=== PATIENT | female | born 1985 | race Caucasian/White ===

== ENCOUNTER 2016-03-31 17:38 | Inpatient (IN) | payer MEDICAID ==
[~2016-03-31] VITALS: Ht 160 cm; Wt 120.7 kg
[2016-03-31 17:51] VITALS: Ht 160 cm; Wt 120.7 kg
[2016-03-31] MEDS ORDERED: PRENAT PO (17:53)
[2016-03-31] MEDS: LACTATED RINGER'S 1,000 ML IV SCH ×3 (18:17→20:04)
[2016-03-31] MEDS ORDERED: CARBOPROST 250 MCG INJ IM PRN (18:30)
[2016-03-31] MEDS ORDERED: CEFAZOLIN 2 GM/50 ML (PMX) 50 ML IV SCH (18:30)
[2016-03-31] MEDS ORDERED: MISOPROSTOL 200 MCG TAB PR PRN ×2 (18:30→20:30)
[2016-03-31] MEDS ORDERED: METHYLERGONOVINE 0.2 MG INJ IM PRN (18:30)
[2016-03-31 19:00] LABS: BASOPHILS % 0.4 % (0.0-2.0); EOSINOPHILS % 0.5 % (0.0-7.0); HEMATOCRIT 29.8 % (37.0-47.0); HEMOGLOBIN 9.8 g/dl (12.0-16.0); LYMPHOCYTES # 1.7 10^3/ul (0.8-2.9); LYMPHOCYTES % 29.9 % (15.0-51.0); MEAN CORPUSCULAR HEMOGLOBIN 25.6 pg (29.0-33.0); MEAN CORPUSCULAR VOLUME 77.4 fl (82.0-101.0); MEAN PLATELET VOLUME 8.4 fl (7.4-10.4); MONOCYTE # 0.3 10^3/ul (0.3-0.9); MONOCYTES % 5.6 % (0.0-11.0); NEUTROPHIL # 3.6 10^3/ul (1.6-7.5); NEUTROPHILS % 63.6 % (39.0-77.0); PLATELET COUNT 236 10^3/UL (140-440); RED BLOOD COUNT 3.85 10^6/ul (4.20-5.40); RED CELL DISTRIBUTION WIDTH 14.9 % (11.5-14.5); UNCORRECTED WBC 5.6 10^3/ul (4.8-10.8); WHITE BLOOD COUNT 5.6 10^3/ul (4.8-10.8)
[2016-03-31 19:01] LABS: CONDITION 1; LH ANALYZER COMMENTS 1
[2016-03-31 19:12] LABS: INR 0.91; PROTIME 12.2 Sec (12.2-14.2)
[2016-03-31 19:13] LABS: PARTIAL THROMBOPLASTIN TIME 27.4 Sec (25.0-35.0)
[2016-03-31] MEDS ORDERED: CITRIC ACID/NA CITRATE 30 ML CUP ONE (19:37)
[2016-03-31] MEDS ORDERED: KETOROLAC 30 MG INJ ONE (19:55)
[2016-03-31] MEDS ORDERED: ONDANSETRON 4 MG INJ ONE (19:55)
[2016-03-31] MEDS ORDERED: METOCLOPRAMIDE 10 MG INJ ONE (19:55)
[2016-03-31] MEDS ORDERED: morphine SULFATE/PF (10 MG/10 ML) INJ ONE (19:55)
[2016-03-31] MEDS ORDERED: CITRIC ACID/NA CITRATE 30 ML CUP PO ONE (20:00)
--- NOTE | 2016-03-31 20:04 | HP ---
Date/Time of Note Date/Time of Note DATE: 03/31/16 TIME: 20:01 OB - History Hx of Present Free Text/Dictation 30 YO with IUP at 38 weeks and h/o c/s x 4 reports to L&D in labor with painful UCs. she desires repeat c/s and BTL Care: Good Care Ultrasounds: Normal mid trimester US Obstetrical Complications: Other (Anemia) Medical Complications: None Other Concerns: h/o c/s x 4 and obese Past Family/Social History * Past Medical, Surgical, Family and Obstetric Histories reviewed from chart. OB Admission Exam Physical Exam HEENT: WNL Heart: Rhythm Normal Lungs: Clear, Equal Abdomen: WNL Extremities: Normal Reflexes: Normal Cervical Dilatation: 1cm Effacement: 100% (90) Last 72 hours Lab Results CBC & BMP 03/31/16 17:45 OB Assessment/Plan Other Assessment: 30 YO with IUP at 38 weeks and h/o c/s x 4 reports to L&D in labor with painful UCs. she desires repeat c/s and BTL Other plan: repeat c/s and BTL TOY GOINS MD Mar 31, 2016 20:04
[2016-03-31] MEDS ORDERED: LANOLIN 7 GM TUBE TOP PRN (20:30)
[2016-03-31] MEDS ORDERED: OXYCODONE/ACETAMINOPHEN (5/325) TAB PO PRN ×2 (20:30)
[2016-03-31] MEDS ORDERED: NA PHOSPHATE/BIPHOS 133 ML ENEMA PR PRN (20:30)
[2016-03-31] MEDS ORDERED: PHENYLephrine (100 MCG/ML) 5ML SYG ONE (20:35)
--- NOTE | 2016-03-31 20:44 | PREOPHP ---
DATE OF ADMISSION: 03/31/2016 HISTORY OF PRESENT ILLNESS: The patient is a 30-year-old female, 6, para 4, at 38 weeks, reports to Labor and delivery complaining of painful uterine contractions. She is 1 cm and 100% effaced. She looks very uncomfortable and she is having contractions. She desires to have rep eat delivery and tubal ligation. She has a history of delivery x4 in the past. I discussed with patient the risks, benefits, indications, alternatives of procedure including, but n ot limited to risk of infection, bleeding, damage to other organs, bowel, bladder, hernia formation, scar formation, possible transfusions, and the possibility that tubal ligation fails and she may ravi ve pregnancies in the future discussed with the patient. She was allowed to ask questions, all her questions were answered, and informed consent has been obtained. PAST MEDICAL HISTORY: Obesity, anemia. PAST SURGICAL HISTORY: delivery x4 and back surgery. ALLERGIES: NO KNOWN DRUG ALLERGIES. MEDICATIONS: 1. vitamins. 2. Iron. REVIEW OF SYSTEMS: Significant as above. PHYSICAL EXAMINATION: VITAL SIGNS: Stable. Afebrile. GENERAL: In no acute distress. HEENT: No thyromegaly. HEART: Regular rate and rhythm. LUNGS: Clear to auscultation bilaterally. ABDOMEN: Soft, obese, gravid, not tender. EXTREMITIES: No edema. ASSESSMENT: 1. Term . 2. History of previous delivery. 3. Desires tubal ligation. 4. Obesity. PLAN: Repeat delivery and tubal ligation. Informed consent obtained. Dictated By: TOY MELENDREZ/PERCY Conf#: [id number] DID#: [id number]
[2016-03-31] MEDS ORDERED: FENTAnyl 50 MCG/ML VIAL ONE (20:45)
[2016-03-31] MEDS ORDERED: MEPERIDINE 100 MG INJ ONE (20:55)
[2016-03-31] MEDS: SENNA/DOCUSATE NA (8.6MG/50MG) TAB PO SCH (21:00)
[2016-03-31] MEDS ORDERED: LIDOCAINE 2% (SDV) 5 ML INJ ONE (21:05)
[2016-03-31] MEDS ORDERED: CEFAZOLIN 1 GM INJ ONE (21:06)
[2016-03-31] MEDS ORDERED: METOCLOPRAMIDE 10 MG INJ IV PRN (21:30)
[2016-03-31] MEDS ORDERED: ONDANSETRON 4 MG INJ IV PRN ×2 (21:30→22:00)
[2016-03-31] MEDS ORDERED: HYDROmorphONE (0.2 MG/ML) 10ML SYG IV PRN ×3 (21:30)
[2016-03-31] MEDS ORDERED: MEPERIDINE 25 MG INJ IV PRN (21:30)
[2016-03-31] MEDS ORDERED: DIPHENHYDRAMINE 50 MG INJ IV PRN ×2 (21:30→22:00)
[2016-03-31] MEDS ORDERED: NALOXONE (0.4 MG/ML) INJ IV PRN (22:00)
[2016-03-31] MEDS ORDERED: HYDROmorphONE 1 MG/ML SYG IV PRN ×3 (22:00)
--- NOTE | 2016-03-31 22:49 | OPRPT ---
Intraop Record Datetime Report Generated by CPN: 03/31/2016 22:49 Datetime: 03/31/2016 22:32 Sequential Compression Device: N/A Datetime: 03/31/2016 22:17 Sequential Compression Device: N/A Datetime: 03/31/2016 22:04 OR Number: 2 TIMES/PROCEDURE Arrive OR: 03/31/2016 19:57 Depart OR: 03/31/2016 21:45 Anesthesia Start: 03/31/2016 19:47 Anesthesia End: 03/31/2016 21:56 Surgery Start: 03/31/2016 20:51 Surgery End: 03/31/2016 21:29 Preoperative Dx: 38WKS REPEAT SCTION WITH LABOR Surgical Procedure: Section with BTL Surgical Procedure Other: N/A Postoperative Dx: 38WKS REPEAT SECTION C/S Decision Time: 03/31/2016 18:30 C/S Decision to Incision (min): 141 Uterine Incision: 03/31/2016 20:51 PERSONNEL Surgeon: Maynor Dye Scrub: ADELSO Anesthesia Care Provider: Stacey Lou Care: See Delivery Summary for Infant Care Providers Others in OR: EFRAIN RN; TACHO, RT; FOB Anesthesia Type: Epidural ASA Level: III RISK FOR INJURY Mode of Arrival: Ambulate Procedure Time Out: Correct Patient Identity; Accurate Procedure Consent Form; Agreement on Procedu re to be Done; Correct Patient Position; Addressed Need to Administer Antibiotics or Fluids for Irri gation Preoperative Information: Preoperative Checklist Reviewed; Allergies Reviewed; NPO Status Verified RISK FOR ANXIETY/KNOW DEFICIT Emotional Status: Calm/Relaxed Interventions: Provided Education Based on Age and Identified Needs; Communicated Patient Concerns to Appropriate Members of the Health Care Team; Explained Sequence of Events and Perioperative Routi ne; Evaluated Response to Instructions RISK FOR PAIN Pain Teaching: Instructed on Pain Scale Pain Scale: 2.0 Pain Location: ABDOMEN PREOPERATIVE OUTCOMES Preoperative Outcomes: Verbalizes/Indicates Decreased Anxiety, Ability to [place], Understanding of Pr ocedure and Sequence of Events. Questions Answered; Demonstrates Adequate Pain Management; Verbaliz es Comfort Related to Transfer/Transport RISK FOR INFECTION Skin Pre-Operative Site: Intact Clip: Clip Clip Location: CLOSED LEG ABDOMEN Prep: Yes Prep By: DR DYE Prep Solution: Povidone Iodine Catheter: Lundberg Catheter Size: 16 Catheter Inserted By: YANETH GARDINER Surgical Wound Class: I-Clean Dressing Type: Secured Gauze Risk for Impaired Skin Integrity Position in OR: Supine Bony Prominences Protection: Arms Tucked/Padded Positioning Devices: Leg Carias Risk for Hypothermia Warming Interventions: Warm Sebastian(s); Warm IV Fluid Warming Unit Temp Settin.0 Warming Device Number: #[id number] Warming Sebastian Applied by: YANTEH GARDINER Risk for Injury Safety Straps Applied: Legs Sequential Compression Device: Yes Electrosurgical Unit: Yes Electrosurgical Unit Number: [place] #[id number] Bipolar Number: [place] [id number] [id number] 04/2017 Ground Pad Location: Right Lateral Thigh Coag Number: 55 Cut Number: 55 Estimated Blood Loss- OR (ml): 700 1st Count Sponge Count: Correct Needle Count: Correct Blade Count: Correct Instrument Count: Correct 2nd Count Sponge Count: Correct Needle Count: Correct Blade Count: Correct Instrument Count: Correct 3rd Count Sponge Count: Correct Needle Count: Correct Blade Count: Correct Instrument Count: Correct Final Count Sponge Count 4: Correct Needle Count 4: Correct Blade Count 4: Correct Instrument Count 4: Correct Surgeon Acknowledged Count: Yes Final Count Resolution: Count Correct Intraoperative Data Equipment: Non-Invasive Blood Pressure; Pulse Oximeter; EKG Blood Products Given: No Implants/Prosthesis Implants/Prosthesis: N/A Grafts: N/A Irrigation Irrigants: NACL; Sterile H2O Irrigation Amount: EACH 1L Specimens Specimens: Yes Specimen Type: Fallopian Tubes Disposition: PATHO Cultures Cultures: N/A X-Ray X-Ray Taken: No Postoperative Skin: Warm Pain Scale: 0 Condition: Awake; Alert Temperature: 97.7 Operative Outcomes: Patient's Surgery Performed Using Aseptic Technique and in a Manner to Prevent Cross-Contamination; Skin Remains Smooth, Intact, Non-reddened, Non-irritated, Free of Bruising; Cor e Body Temperature Remains in Expected Range Transfer To: L_D Datetime: 03/31/2016 22:02 Sequential Compression Device: N/A Datetime: 03/31/2016 21:47 Sequential Compression Device: N/A Datetime: 03/31/2016 17:47 Food Allergies/Reactions: DENIES Latex Allergies/Reactions: No Latex Allergies Datetime: 03/31/2016 17:41 Drug Allergies/Reactions: No Known Drug Allergies (02/19/2013)
--- NOTE | 2016-03-31 22:49 | DELSUM ---
Delivery Summary A-C Datetime Report Generated by CPN: 03/31/2016 22:49 DELIVERY PERSONNEL Lubrication Equipment Servicer: Irvin, Dianna MATERNAL INFORMATION Delivery Anesthesia: Epidural Medications in Delivery: SEE ANES RECORD Estimated Blood Loss (ml): 700 Placenta Cultured: No Maternal Complications: None RN Comments: RC/S WITH LABOR LABOR SUMMARY EDC: 04/14/2016 00:00 No. Babies in Womb: 1 Attempted: No Labor Anesthesia: Epidural LABOR INFORMATION Reason for Induction: Not Applicable Onset of Labor: 03/31/2016 16:30 Oxytocin: N/A Group B Beta Strep: Negative Antibiotics # of Doses: ANCEF 2GM Antibiotics Time of Last Dose: 202403/31/16 Steroids Given: None Reason Steroids Not Administered: Not Applicable MEMBRANES Membranes Rupture Method: Artificial Rupture of Membranes: 03/31/2016 20:52 Length of Rupture (hr): 0.02 Amniotic Fluid Color: Clear Amniotic Fluid Amount: Moderate Amniotic Fluid Odor: Normal STAGES OF LABOR Stage 3 hr: 0 Stage 3 min: 1 Total Time in Labor hr: 4 Total Time in Labor min: 24 CSECTION DELIVERY Primary Indication: Repeat Other Primary Indication: WITH LABOR Secondary Indication: N/A Other Secondary Indication: N/A CSection Urgency: Emergency CSection Incidence: Repeat Labor: Labor Elective: N/A CSection Incision: Lower Uterine Transverse Sterilization Procedure: Jeremy BABY A INFORMATION Infant Delivery Date/Time: 03/31/2016 20:53 Method of Delivery: Born in Route : No : N/A Forceps: N/A Vacuum Extraction: N/A Shoulder Dystocia : N/A SHOULDER DYSTOCIA BABY A Delivery Date/Time: 03/31/2016 20:53 PRESENTATION/POSITION BABY A Presentation: Cephalic Cephalic Presentation: Vertex Vertex Position: Left Occipital Anterior Breech Presentation: N/A PLACENTA INFORMATION BABY A Placenta Delivery Time : 03/31/2016 20:54 Placenta Method of Delivery: Manual Removal Placenta Status: Delivered SCORES BABY A Heart Rate 1 min: >100 bpm Resp Effort 1 min: Good Cry Reflex Irritability 1 min: Cough/Sneeze/Pulls Away Muscle Tone 1 min: Active Motion Color 1 min: Body [place], Extremit Blue Resuscitation Effort 1 min: Tactile Stimulation SCORE 1 MIN: 9 Heart Rate 5 min: >100 bpm Resp Effort 5 min: Good Cry Reflex Irritability 5 min: Cough/Sneeze/Pulls Away Muscle Tone 5 min: Active Motion Color 5 min: Body [place], Extremit Blue Resuscitation Effort 5 min: N/A SCORE 5 MIN: 9 INFORMATION BABY A Gestational Age at Delivery: 38.0 Gestational Status: Early Term- 37- 38.6 Weeks Outcome : Liveborn Infant Condition : Stable Infant Sex: Female IDENTIFICATION/MEDS BABY A ID Band Number: [id number] ID Band Location: Right Leg; Left Arm Sensor Applied: Yes Sensor Number: [id number] Sensor Location : Cord Clamp Vitamin K Given : Not Given Erythromycin Given: Not Given WEIGHT/LENGTH BABY A Infant Birthweight (gm): 3420 Weight (lb): 7 Weight (oz): 9 Infant Length (in): 19.00 Length (cm): 48.26 CORD INFORMATION BABY A No. Cord Vessels: 3 Nuchal Cord : N/A Cord Blood Taken: Yes Suction: Mouth; Nose ASSESSMENT BABY A Infant Complications: None Physical Findings at Delivery: Within Normal Limits Infant Respirations: Appears Normal [place] Structural Glass/ALS Called : No Care By: EFRAIN/TACHO Transferred To: Remains with Mother
[2016-03-31] MEDS: OXYTOCIN 30 UNITS/LR 500 ML IV PRN (23:06)
[2016-04-01] MEDS ORDERED: IBUPROFEN 600 MG TAB PO SCH
[2016-04-01 00:30] VITALS: BP 129/81; PULSE 80; RESP 20
[2016-04-01 01:45] VITALS: BP 122/63; PULSE 88; RESP 19
[2016-04-01] MEDS: OXYTOCIN 30 UNITS/LR 500 ML IV PRN (02:36)
--- NOTE | 2016-04-01 03:49 | OPR ---
DATE OF OPERATION: 03/31/2016 PREOPERATIVE DIAGNOSES: 1. Labor, at 38 weeks, desires repeat delivery, and desires tubal ligation. 2. History of delivery x4. POSTOPERATIVE DIAGNOSES: 1. Labor, at 38 weeks, desires repeat delivery, and desires tubal ligation. 2. History of delivery x4. 3. Right tube was adherent to the right ovary. PROCEDURE: Repeat delivery, bilateral tubal ligation, and lysis of adhesions. SURGEON: Toy Dye MD COMPLIANCE TECHNICIAN: Salvador Leahy MD ESTIMATED BLOOD LOSS: 700 mL COMPLICATIONS: None. CONSENT: Risks, benefits, indications, alternatives of procedure including but not limited to risk of infection, bleeding, damage to other organs, bowel, bladder, hernia formation, scar formation, po ssible transfusions, possibility of failure for tubal ligation were all discussed with the patient. She was allowed to ask questions, and all her questions were answered. Informed consent was obtain ed. DESCRIPTION OF PROCEDURE: She was taken to the operating room, and spinal anesthesia was attempted which was unsuccessful, so epidural was placed. She was prepped and draped in the usual sterile fas hion. Anesthesia was tested to be adequate. A surgical timeout was done. A Pfannenstiel skin inci amber was developed. The incision was taken down in layers. The fascia was cut, undermined, separat ed from the underlying muscle using sharp and blunt dissection. All bleeders were cauterized. Liset toneum was entered bluntly. A low transverse incision was developed over the uterus, and a viable i nfant was delivered in vertex presentation. Amniotic fluid was clear and aquatic. The cord was cla mped and cut, handed to awaiting team. Placenta was then delivered. Uterus was exteriorized, wrapp ed in a moist lap. Inside the uterus was cleaned using a dry lap. All residual membranes were remov ed. Uterine incision was then closed using #1 Monocryl in 1 layer. Extra sutures using 2-0 Monocry l were placed to stop the bleeding. At this time, I attempted tubal ligation on the right side. It was difficult because there were adhesions from the tubes to the ovaries. Some of these adhesions were taken down, and then 3 cm distal end of the tube was ligated 3 times and cut, and the salpingec jennifer was done, but we were concerned because of adhesions, and we did not have enough tube removed, so we also performed modified [place] on that side, and a 4 cm midampullary region of the right tube was also ligated 3 times, cut, and sent to pathology. On the left side, there were no adhesions. We were able to remove the 6 cm distal end of the tube and performed salpingectomy by tying it 3 alvarado es using 0 plain and cutting the distal end. The uterus was inserted back inside the abdominal cavi ty. Irrigation was done. Gutters were cleaned. Uterine incision was evaluated carefully. There w as no further bleeding. The sites of tubal ligations were evaluated. There was no bleeding. There was some bleeding in rectus muscle on the left side which was controlled by placing a [id number] ht suture of 2-0 chromic on an SH needle. The peritoneum was closed using 2-0 Monocryl. Instrument count was correct. Rectus muscles were closed using 2-0 Monocryl. Rectus fascia was closed using #1 Vicryl. Subcutaneous tissue was cleaned, irrigated, all bleeders cauterized, and closed using 3- 0 Vicryl and skin closed using 4-0 Monocryl. All counts correct. Dictated By: TOY MELENDREZ/PERCY Conf#: [id number] DID#: [id number]
[2016-04-01] MEDS: KETOROLAC 30 MG INJ IV PRN ×3 (04:55→17:24)
[2016-04-01 05:00] VITALS: BP 121/69; PULSE 85; RESP 19
[2016-04-01] MEDS: LACTATED RINGER'S 1,000 ML IV SCH ×4 (06:17→21:07)
[2016-04-01 08:00] VITALS: BP 114/61; PULSE 79; RESP 18
[2016-04-01 08:28] LABS: EOSINOPHILS % 0.2 % (0.0-7.0); HEMATOCRIT 23.6 % (37.0-47.0); LYMPHOCYTES # 1.3 10^3/ul (0.8-2.9); MEAN CORPUSCULAR HEMOGLOBIN 26.2 pg (29.0-33.0); MEAN PLATELET VOLUME 8.5 fl (7.4-10.4); MONOCYTE # 0.3 10^3/ul (0.3-0.9); MONOCYTES % 5.4 % (0.0-11.0); NEUTROPHIL # 4.4 10^3/ul (1.6-7.5); NEUTROPHILS % 73.4 % (39.0-77.0); PLATELET COUNT 164 10^3/UL (140-440); RED BLOOD COUNT 3.07 10^6/ul (4.20-5.40); RED CELL DISTRIBUTION WIDTH 15.6 % (11.5-14.5)
[2016-04-01 08:42] LABS: CONDITION 1; LH ANALYZER COMMENTS 1
[2016-04-01] MEDS: SENNA/DOCUSATE NA (8.6MG/50MG) TAB PO SCH ×2 (09:00→21:00)
[2016-04-01 11:55] VITALS: BP 110/70; PULSE 76; RESP 18
[2016-04-01] MEDS: IBUPROFEN 600 MG TAB PO SCH (18:00)
[2016-04-01 20:00] VITALS: BP 128/64; PULSE 90; RESP 19
[2016-04-02] MEDS: LACTATED RINGER'S 1,000 ML IV SCH ×2 (02:00→04:00)
[2016-04-02 04:45] VITALS: BP 125/60; PULSE 87; RESP 20
[2016-04-02] MEDS: IBUPROFEN 600 MG TAB PO SCH ×4 (05:43→17:52)
[2016-04-02 07:25] VITALS: BP 104/65; PULSE 80; RESP 18
[2016-04-02] MEDS: SENNA/DOCUSATE NA (8.6MG/50MG) TAB PO SCH ×2 (09:02→21:56)
[2016-04-02 16:00] VITALS: BP 135/77; PULSE 93; RESP 18
[2016-04-02 20:00] VITALS: BP 136/79; PULSE 86; RESP 18
[2016-04-03] MEDS: IBUPROFEN 600 MG TAB PO SCH ×3 (00:03→11:51)
--- NOTE | 2016-04-03 01:41 | DS ---
Date/Time of Note Date/Time of Note DATE: 04/03/16 TIME: 01:40 Obstetrical Discharge Record Final Diagnosis Final Diagnosis: Term delivered Vaginal Delivery Obstetrical Delivery: Bilateral Tubal Ligation Section Section: Repeat Complications Augmentation: No Induction: No Rupture of Membranes: No Condition on Discharge Physical Assessment Last Vitals: VSS, Afebrile Voiding: Yes Bowel Movement: Yes Breast: Soft, non-tender, Filling Fundus: Firm Abdomen and Incision: soft, appropriate tenderness. incision is clean and dry Calf Tenderness: No Patient Condition: Good TOY GOINS MD Apr 03, 2016 01:41
[2016-04-03 03:47] VITALS: BP 135/79; PULSE 98; RESP 18
[2016-04-03 07:30] VITALS: BP 154/85; PULSE 84; RESP 18
[2016-04-03] MEDS: SENNA/DOCUSATE NA (8.6MG/50MG) TAB PO SCH (08:37)
[2016-04-03] MEDS ORDERED: MEASLES,MUMPS,RUBELLA VACCINE INJ SC* ONE (09:00)
[2016-04-03] MEDS ORDERED: DIPHTH/TET/ACEL PERTUSS (ADULT) 0.5 ML VIAL IM* ONE (09:00)
[2016-04-03] MEDS ORDERED: INFLUENZA VIRUS VACCINE 0.5 ML (DISPENSING) IM* ONE (09:00)
== END 2016-04-03 12:41 | disposition home or self-care (01) | DRG 765 ==
LOC: OBT 17:38 → L-D 17:42 → OBT 18:00 → L-D 18:00 → PP1 04-01 00:22
PROVIDERS: ADMIT Specialist; ATTEND Specialist
PROC: 0UB70ZZ Excision of Bilateral Fallopian Tubes, Open Approach (ICD-10-PCS; 2016-03-31)
PROC: 10D00Z1 Extraction of Products of Conception, Low, Open Approach (ICD-10-PCS; principal; 2016-03-31 20:00)
DX: O34.211 Maternal care for low transverse scar from previous cesarean delivery (principal); Z68.42 Body mass index [BMI] 45.0-49.9, adult; O99.214 Obesity complicating childbirth; E66.01 Morbid (severe) obesity due to excess calories; Z3A.38 38 weeks gestation of pregnancy; Z37.0 Single live birth; Z30.2 Encounter for sterilization
CPT/HCPCS: 85025; 85610; 85730; 86592; 86850; 86900; 86901; 86920; 87340; 88302; 90686; 90715; 94760; 99464; G0463; J0690; J1885; J2175; J2274; J2370; J2405; J2590; J2765; J3010; J7120